=== PATIENT | female | born 1985 | race Two or more races ===

== ENCOUNTER → 2021-02-12 | Day surgery (SDC) | payer OTHER ==
[~2021-02-12] MED LIST: PERCOCET 5-3251 EACH PO; TAPAZOLE5 M1 PO
== END | disposition home or self-care (01) ==
LOC: ADM 02-06 07:00 → CIR.AMB 07:00
PROVIDERS: ATTEND Surgery
DX: E04.2 Nontoxic multinodular goiter (principal); Z20.822 Contact with and (suspected) exposure to COVID-19

== ENCOUNTER 2023-07-20 08:21 | Outpatient (CLI) | payer OTHER | END 2023-07-20 08:28 | disposition home or self-care (01) | LOC: MAMO-SONO 08:21 | PROVIDERS: ATTEND Obstetrics & Gynecology | DX: N64.4 Mastodynia (principal); Z12.39 Encounter for other screening for malignant neoplasm of breast; Z12.31 Encounter for screening mammogram for malignant neoplasm of breast ==